=== PATIENT | female | born 1970 | race Caucasian/White ===

== ENCOUNTER 2016-12-15 23:10 | Emergency (ER) | payer OTHER ==
[~2016-12-15] VITALS: Ht 167.6 cm; Wt 80.4 kg
[2016-12-15 23:31] VITALS: BP 133/85
--- NOTE | 2016-12-16 01:30 | NUR ---
PATIENT LEFT WITHOUT BEING SEEN BY DR. WOOD. NO FURTHER CARE PROVIDED FOR PATIENT.
== END 2016-12-16 01:30 | disposition left against medical advice (07) ==
LOC: MED 23:10
DX: M79.606 Pain in leg, unspecified (principal); Z53.21 Procedure and treatment not carried out due to patient leaving prior to being seen by health care provider

== ENCOUNTER 2017-03-24 14:27 | Emergency (ER) | payer OTHER ==
[~2017-03-24] VITALS: Ht 167.6 cm; Wt 74.8 kg
[2017-03-24 14:36] VITALS: BP 146/100
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
--- NOTE | 2017-03-24 18:24 | NUR ---
Patient being evaluated by DR DE LOS SANTOS at bedside.
[2017-03-24] MEDS ORDERED: KETOROLAC 60 MG/2 ML VIAL IM ONE (18:30)
--- NOTE | 2017-03-24 18:53 | NUR ---
PT CAN DRINK JUICE AT THIS TIME. Patient appears to be resting comfortably in bed. BP 133/83; DENIES HEADACHE AT THIS TIME, Respirations even and unlabored. WILL CONTINUE TO MONITOR.
[2017-03-24 19:02] VITALS: BP 133/83
--- NOTE | 2017-03-24 19:02 | NUR ---
Patient discharged with v/s stable. Written and verbal after care instructions given and explained. Patient alert, oriented and verbalized understanding of instructions. Ambulatory with steady gait. All questions addressed prior to discharge. ID band removed. Patient advised to follow up with PMD. Rx of MOTRIN, PREDNISONE & NORCO given. Patient educated on indication of medication including possible reaction and side effects. Opportunity to ask questions provided and answered.
== END 2017-03-24 19:02 | disposition home or self-care (01) ==
LOC: MED 14:27
DX: S20.212A Contusion of left front wall of thorax, initial encounter (principal); M54.2 Cervicalgia; F17.200 Nicotine dependence, unspecified, uncomplicated; X58.XXXA Exposure to other specified factors, initial encounter; Y93.89 Activity, other specified; Y92.89 Other specified places as the place of occurrence of the external cause; Y99.8 Other external cause status
CPT/HCPCS: 71101; 96372; 99284; J1885